=== PATIENT | female | born 2005 | race Two or more races ===

== ENCOUNTER 2024-07-11 16:30 | Inpatient (IN) | payer MEDICAID, SELFPAY ==
[2024-07-11] VITALS (114 sets, daily range): BP systolic 96–191; BP diastolic 49–139; PULSE 86–145; RESP 18–99; TEMP 36.5–38.7; O2SAT 77–100; BMI 32.5
--- NOTE | 2024-07-11 16:54 | PD.LDHP ---
Documentation for date of: 07/11/24 OB Labor/Induct. HPI History of Present Illness Chief complaint: Active labor, ruptured membranes. : 1 Para: 0 History of sections: No History of : No SANDRA: 07/14/24 Gestational Age (weeks): 39 Gestational Age (days): 4 History of present illness: The patient is a 19-year-old G1, P0 at 39-4/7 weeks with an EDC of 07/14/2024 who presented to labor and delivery in active labor with painful uterine contractions. She presented approximately 1630. She states her bag water broke at home at 1600. Patient's 5 cm dilated on presentation group B strep is negative. Patient reports good movement painful contractions and no heavy vaginal bleeding. She reports leaking clear fluid. History of Present Dating criteria: LMP confirmed by 1st trimester US Adequate Care: Yes Ultrasounds: normal mid trimester US Obstetrical complications: none Medical complications: none Labs Maternal Blood Type: A Pos Labs: Positive: Rubella Titre and Negative: RPR, Hepatitis B, HIV, Chlamydia, Gonorrhea and Group Beta Strep Review of Systems Review of Systems Systems Reviewed: All systems reviewed, normal except as documented Past Medical History Past Medical History PSYCHO/SOCIAL: Positive Anxiety Surgical History SURGICAL: Negative Section Meds Home Medications and Allergies Home Medications ?Medication ?Instructions ?Recorded ?Confirmed ?Type No Known Home Medications 07/11/24 07/11/24 History Allergies Allergy/AdvReac Type Severity Reaction Status Date / Time No Known Allergies Allergy Verified 07/11/24 16:37 OB Exam Physical Exam Vital signs: Temp Pulse Resp BP Pulse Ox O2 Del Method 97.7 F 120 H 20 122/75 99 Room Air 07/11/24 16:50 07/11/24 16:34 07/11/24 16:50 07/11/24 16:34 07/11/24 16:34 07/11/24 16:34 Routine Abdominal Exam Abdominal: Present soft Detailed Labor and Delivery Exam Dilation (cm): 5 Effacement (%): 80 Cervix position: mid station: -1 Consistency: soft Presentation: Vertex Membranes: ruptured Amniotic fluid: clear monitor accelerations: 15x15 monitor decelerations: Early termite treater variability: Moderate (11-25) Contraction frequency (min): 3 min Contraction duration (sec): 45 Tachysystole: No Contraction intensity: Strong OB Assessment & Plan Assessment and Plan (1) Active labor at term: Status: Acute Additional Plan Plan: anticipate NVD Additional Plan Comment: Okay for epidural once lab work is back.
[2024-07-11 17:28] LABS: Basophils # (Auto) 0.1 Thou/mm3 (0.0-0.2); Basophils % (Auto) 0 % (0-2.5); Eosinophils % (Auto) 0 % (0-10); Hematocrit 35.7 % (36.0-46.0); Hemoglobin 12.5 g/dL (12.0-16.0); Immature Granulocytes % (Auto) 0 % (0-0); Immature Granulocytes Auto 0.05 Thou/mm3 (0.00-0.00); Lymphocytes % (Auto) 13 % (10-50); Mean Corpuscular Hemoglobin 30.7 pg (25.0-35.0); Mean Corpuscular Volume 88 fL (80-100); Monocytes # (Auto) 0.9 Thou/mm3 (0.0-0.8); Monocytes % (Auto) 6 % (0-12); Neutrophils % (Auto) 80 % (37-80); Nucleated Red Blood Cell % 0 /100 WBC (0); Platelet Count 266 Thou/mm3 (140-440); RDW Standard Deviation 40.8 fL (36.4-46.3); Red Blood Count 4.07 Miln/mm3 (4.00-5.20); White Blood Count 15.1 Thou/mm3 (3.6-11.0)
[2024-07-11 18:04] LABS: Syphilis Nonreactive (Nonreactive)
[2024-07-11] MEDS: fentaNYL CIT INJ 50 mCg/ML AMP 2ML 100 MCG IV (18:05)
[2024-07-11 18:19] LABS: Amphetamine/Metham Scrn,Ur OB Negative (Negative); Benzoylecgonine Screen, Ur OB Negative (Negative); Opiate Screen,Urine OB Negative (Negative); THC Screen,Urine OB Negative (Negative)
[2024-07-11] MEDS: RINGERS LACTATED 1000 ML 1,000 ML 125 ML IV ×2 (18:42→19:56)
[2024-07-11] MEDS: RINGERS LACTATED 500 ML 500 ML 999 ML IV (21:01)
[2024-07-11] MEDS: OXYTOCIN in NS 20 units 20 UNIT/1,000 ML BAG 125 UNIT IV (23:03)
[2024-07-11] MEDS: MISOPROSTOL 200 mCg TABLET 800 MCG PR (23:16)
[2024-07-11] MEDS: LIDOCAINE HCL 1% 20 ML VIAL INFL (23:16)
--- NOTE | 2024-07-11 23:29 | PD.LDDELS ---
Data ([place]) Data Hx Section: No Maternal Blood Type: A Pos Rubella Titre: Positive RPR: Non-reactive Labs: Negative: RPR, Hepatitis B, HIV, Chlamydia, Gonorrhea and Group Beta Strep : 1 Para: 0 Term: 0 : 0 : 0 Delivery Data ([facility]) Labor Data Stimulated/Augmented: No Induction: No ROM Date: 07/11/24 ROM Time: 16:00 Rupture Type: SROM Amniotic Fluid: Clear Delivery Data EDC: 07/14/24 Labor Onset Stage 1 Date: 07/11/24 Labor Onset Stage 1 Time: 15:30 Labor Onset Stage 2 Date: 07/11/24 Labor Onset Stage 2 Time: 22:09 Delivery Date: 07/11/24 Delivery Time: 23:01 Gestational age (weeks): 39 Gestational age (days): 4 Placenta Delivery Date: 07/11/24 Placenta Delivery Time: 23:03 Length stage 2 (minutes): 40 Length stage 3 (minutes): 2 Delivered by: Olga Garcia Delivery nurse: Carlee Thrasher Licensed Investment Sales Assistant at delivery: No Support person(s) at delivery: FOB, [id number] Other staff at delivery: 2nd Nurse Other staff at delivery: Nursery Nurse Other staff at delivery: Other staff at delivery: Katelyn Persaud Other staff at delivery: Emily Summers Other staff at delivery: isabel fong Delivery Method Delivery: Vaginal Delivery Type: Spontaneous Presentation: Vertex Position: OP Anesthesia Type Primary Anesthesia: Epidural Secondary Anesthesia: Local Delivery Room Medications Post Delivery Medications: Cytotec (800 ug rectally) Placenta Placenta Delivery: Spontaneous Placenta Cultures Obtained: No Placenta Sent for Examination: No Cord Sample: Cord Blood Obtained Episiotomy Episiotomy: None Lacerations #2: Perineal: 1st degree Periurethral: left periurethral Perineal repair Sutures used for repair: 4.0 Chromic and other EBL Estimated blood loss (ml): 300 Umbilical Cord Placenta/Cord Complication: Velamentous Insertion Umbilical Vessels: 3 Nuchal Cord: x1 Body Cord: None Additional Procedures Patient presented 5 centimeters dilated about 4 PM. She was admitted. She had already ruptured her membranes. She had epidural placed. She went on to progress to complete without the aid of Pitocin and pushed approximately 40 minutes. Patient had to push every other push because the baby was having deep variable decelerations with pushing. She delivered a liveborn female in the direct OP presentation at 2301. Findings liveborn female in the LOP presentation with a loose nuchal cord x 1 no meconium . Apgars were 8 and 9 weight was 6 pounds 3 ounces. The placenta was complete spontaneous grossly normal with a velamentous insertion delivering approximately 2 minutes after the baby delivered. Patient sustained a left first-degree periurethral laceration and a first-degree perineal laceration repaired in a standard fashion with local anesthesia using 4-0 chromic. After delivery, the patient had some brisk bleeding and 800 mcg of Cytotec were placed rectally along with fundal massage and her bleeding was noted to be scant. Complications were none. Condition both mom and were in stable condition in the delivery room [place] [facility] ([facility]) [place] [facility] Gender: Female Weight Grams: 2805 1 Minute Total: 8 5 Minute Total: 9
[2024-07-11] MEDS: IBUPROFEN TAB 400 MG TABLET 800 MG PO (23:50)
[2024-07-12] VITALS (30 sets, daily range): BP systolic 104–166; BP diastolic 55–80; PULSE 97–148; RESP 16–18; TEMP 36.3–37.9; O2SAT 96–100
[2024-07-12] MEDS: ceFAZolin/D5W 2 GM IV 2 GM/100 ML BAG IV
[2024-07-12] MEDS: ACETAMINOPHEN IVPB 1,000 MG/100 ML VIAL 250 MG IV (00:05)
[2024-07-12] MEDS: BENZO/LANO/ALOE (Dermoplast) 60 GM CAN 1 SPRAY TOP (00:55)
[2024-07-12 06:36] LABS: Basophils # (Auto) 0.1 Thou/mm3 (0.0-0.2); Basophils % (Auto) 0 % (0-2.5); Eosinophils % (Auto) 0 % (0-10); Hematocrit 26.1 % (36.0-46.0); Hemoglobin 9.1 g/dL (12.0-16.0); Immature Granulocytes % (Auto) 0 % (0-0); Immature Granulocytes Auto 0.05 Thou/mm3 (0.00-0.00); Lymphocytes # (Auto) 2.1 Thou/mm3 (1.0-4.8); Lymphocytes % (Auto) 14 % (10-50); Mean Corpuscular HGB Conc 34.9 g/dl (31.0-37.0); Mean Corpuscular Hemoglobin 31.2 pg (25.0-35.0); Mean Corpuscular Volume 89 fL (80-100); Monocytes # (Auto) 1.2 Thou/mm3 (0.0-0.8); Monocytes % (Auto) 8 % (0-12); Neutrophils # (Auto) 11.5 Thou/mm3 (1.8-7.7); Neutrophils % (Auto) 78 % (37-80); Nucleated Red Blood Cell % 0 /100 WBC (0); Platelet Count 228 Thou/mm3 (140-440); RDW Standard Deviation 42.9 fL (36.4-46.3); Red Blood Count 2.92 Miln/mm3 (4.00-5.20); White Blood Count 14.9 Thou/mm3 (3.6-11.0)
[2024-07-12] MEDS: DOCUSATE SOD 100 MG CAPSULE PO ×2 (08:38→21:40)
--- NOTE | 2024-07-12 09:39 | PD.LDPN ---
Documentation for date of: 07/12/24 OB Labor Progress Note Pain Control Pain control: tolerating well Pelvic Exam Dilation (cm): 5 Effacement (%): 80 station: -1 Comments: patient delivered just before midnight and doing well Contractions Contraction frequency: 3 min Contraction intensity: Strong Status status: Category ll
--- NOTE | 2024-07-12 09:40 | PD.LDPPPRG ---
Subjective Subjective Interval history: doing well , feels good Exam Vital Signs Temp Pulse Resp BP Pulse Ox O2 Del Method 97.3 F 102 H 16 114/74 98 Room Air 07/12/24 08:25 07/12/24 08:25 07/12/24 08:25 07/12/24 08:25 07/12/24 08:25 07/12/24 08:25 Narrative Exam ambulating . lochia normal, trying o breast feed , no dizziness or chest pain or SOB Constitutional Constitutional: no acute distress Routine Neck Exam Neck: Present supple and full ROM Routine Respiratory Exam Respiratory: Present chest non-tender, lungs clear, normal breath sounds, no resp distress and CTA bilaterally Routine Abdominal Exam Abdominal: Present soft and normoactive bowel sounds Routine Exam Patient deferred: external exam Comments: normal lochia , intact repair , no hematoma, uterus firm and no fundal tenderness Routine Extremities Exam Extremities: Present full ROM and pulses intact Routine Skin Exam Skin: Present intact Routine Neurological Exam Neurological: Present alert, oriented X3, CN II-XII intact, normal reflexes, vision grossly intact and normal speech Routine Psychiatric Exam Psychiatric: Present normal affect, normal thought process, cooperative and good insight Objective Labs 07/12/24 04:37 Labs: Laboratory Results - last 24 hr 07/11/24 07/11/24 07/12/24 16:50 17:05 04:37 WBC 15.1 H 14.9 H RBC 4.07 2.92 L Hgb 12.5 9.1 L D Hct 35.7 L 26.1 L MCV 88 89 MCH 30.7 31.2 MCHC 35.0 34.9 RDW Std Deviation 40.8 42.9 Plt Count 266 228 D Neut % (Auto) 80 78 Lymph % (Auto) 13 14 [place] % (Auto) 6 8 Eos % (Auto) 0 0 Baso % (Auto) 0 0 Neut # (Auto) 12.0 H 11.5 H Lymph # (Auto) 2.0 2.1 [place] # (Auto) 0.9 H 1.2 H Eos # (Auto) 0.0 0.0 Baso # (Auto) 0.1 0.1 Immature Gran # (Auto) 0.05 H 0.05 H Absolute Nucleated RBC 0.00 0.00 Immature Gran % 0 0 Nucleated RBC % 0 0 Urine Opiates Screen Negative U Amphetamin/Meth Scrn Negative U Cocaine Metab Screen Negative U Marijuana (THC) Screen Negative Syphilis Serology Nonreactive Blood Type A Positive Antibody Screen NEGATIVE Blood Bank Wristband ID Yes Assessment & Plan Problem List (1) Active labor at term: Problem details: labor , s/p and doing well. Routine care Status: Acute Assessment and plan: Routine care Assessment Comment Assessment comment: stable , doing well Plan Comment Plan Comment: discharge tomorrow / GBS negative , delivered just before midnight Time Spent With Patient Time: Total time spent is greater than 50% in coordination of care (as documented) at patient's floor/unit and/or counseling patient: Time with patient: 25 - 35 minutes
[2024-07-12] MEDS: ACETAMINOPHEN 325 MG TABLET 650 MG PO (21:40)
[2024-07-13 03:05] VITALS: BP 111/71; PULSE 88; RESP 16; TEMP 36.6; O2SAT 99
[2024-07-13 07:22] VITALS: BP 116/80; PULSE 97; RESP 18; TEMP 36.5; O2SAT 99
--- NOTE | 2024-07-13 11:00 | PC.CC ---
Patient is a 19 year-old female who presents to the hospital to deliver her baby girl, Cherelle Escobar. ASW receives a referral for THC history. ASLinda Méndez made [id number] contact with patient. ASW introduced self, role, and reason for visit. Patient appeared alert and oriented to self, location, and situation.?When ASW entered the room the patient was tearful and requested ASW return as she needed to use the restroom. At bedside was patient's significant other/father of baby, Ag Escobar was at bedside. ASW returned to the room with DAMION Jimenez. Patient's significant other/father of baby was requested to exit the room during assessment. Patient reports she used THC when she was an adolescent but does not currently use. Patient continued to be tearful during assessment. ASW attempted to explore with the patient why she was tearful and reported it was because she felt overwhelmed with being a new mother. Patient denied domestic violence and continued to seek reassurance from significant other who remained outside of the room. The FOB became hostile with nursing staff requesting to enter the room and stated that nothing was wrong with the patient. automotive parts counter person Dayana stepped in to help deescalate the father of the baby as he continued to make statements that nursing staff was rude and did not understand why he cannot be in the room during the assessment. Patient denied history of mental health and reports she is not connected with out patient mental health services. ASW provided psychoeducation regarding baby blues and Post- Depression, as well as counseling groups [facility]. SW provided community resources: Warm Line and Crisis Line. Patient reports she does not have a car seat of her own for her and will be borrowing one. Patient reports she plans to bottle and breast feed her baby. ASW provided update to automotive parts counter person Leslie and bedside DAMION Jimenez that patient does not have a carseat of their own.
--- NOTE | 2024-07-13 11:22 | PD.LDDS ---
DS: Providers Provider Date of admission: 07/11/24 16:48 Primary care physician: Physician No Primary/Family Admitting Provider: Olga Garcia MD Attending Provider on Admission: Olga Garcia MD Consults: 07/11/24 23:40 Referral Routine Comment: Attending Provider on DC: Becka Mac MD Discharging Provider: Becka Mac MD Anticipated date of discharge: 07/13/24 DS: Diagnosis Discharge Diagnosis (1) Active labor at term: Status: Acute Assessment & Plan: post routine care and doing well Problem List Completed Was Problem List Reviewed/Reconciled?: Yes Summary/Hosp Course Brief History: The patient is a 19-year-old G1, P0 at 39-4/7 weeks with an EDC of 07/14/2024 who presented to labor and delivery in active labor with painful uterine contractions. She presented approximately 1630. She states her bag water broke at home at 1600. Patient's 5 cm dilated on presentation group B strep is negative. Patient reports good movement painful contractions and no heavy vaginal bleeding. She reports leaking clear fluid. Peripartum Data Delivery Method: Normal Vaginal Delivery Laceration Description: yes complications: none Status at Discharge Cognitive/behavioral status at discharge: normal Functional status at discharge: independent ambulation Time Spent with Patient Time attestation: Total time spent providing and/or coordinating discharge services: Exam Vital Signs Temp Pulse Resp BP Pulse Ox O2 Del Method 97.7 F 97 18 116/80 99 Room Air 07/13/24 07:22 07/13/24 07:22 07/13/24 07:22 07/13/24 07:22 07/13/24 07:22 07/13/24 07:22 Narrative Exam doing well Constitutional Constitutional: no acute distress Routine Neck Exam Neck: Present supple and full ROM Routine Respiratory Exam Respiratory: Present chest non-tender, lungs clear, normal breath sounds, no resp distress and CTA bilaterally Routine Cardiovascular Exam Cardiovascular: Present RRR Routine Abdominal Exam Abdominal: Present soft and normoactive bowel sounds Routine Extremities Exam Extremities: Present full ROM, pulses intact and calf tenderness (none ) Routine Back/Spine/Pelvis Exam Back/Spine: Present full ROM and CVA tenderness (none) Routine Skin Exam Skin: Present intact and normal turgor Routine Neurological Exam Neurological: Present alert, oriented X3, CN II-XII intact and vision grossly intact Routine Psychiatric Exam Psychiatric: Present normal affect, normal thought process, cooperative, good insight and good judgment Discharge Plan Plan Patient Disposition: HOME (Self Care) Disposition Comment: stable Patient condition on transfer: Stable Prescriptions/Referrals Prescriptions/Med Rec: New acetaminophen 325 mg Tablet 650 mg PO Q4H PRN (Reason: See Comments) Qty: 20 0RF ibuprofen 600 mg tablet 600 mg PO Q8H PRN (Reason: pain) Qty: 30 0RF Referrals: No Primary/Family,Physician [Primary Care Provider] - Patient/Caregiver Discharge Instructions Discharge Activity: activity as tolerated Other Discharge Activity Instructions:: pelvic rest x 6 weeks,Follow up Ob in 4 to 6 weeks ED precautions for fever, heavy bleeding Other Discharge Diet Instructions: regular Print Language: Yoruba Stand Alone Forms: Laura Award Info., Patient Portal Info Letter Discharge Order Discharge Orders: Discharge (Routine); Ordered 07/13/24 Ordered By: Becka Mac Planned Discharge Date 07/13/24
== END 2024-07-13 15:09 | disposition home or self-care (01) | DRG 560 ==
LOC: S4SX 23:20 → S4NX 07-12 01:29
PROVIDERS: Admitting Provider Obstetrics & Gynecology; Visit Provider Obstetrics & Gynecology
DX: O69.81X0 Labor and delivery complicated by cord around neck, without compression, not applicable or unspecified (principal); Z37.0 Single live birth; O76 Abnormality in fetal heart rate and rhythm complicating labor and delivery; Z3A.39 39 weeks gestation of pregnancy; O70.0 First degree perineal laceration during delivery; O71.82 Other specified trauma to perineum and vulva
CPT/HCPCS: 36415; 59025; 59409; 80307; 85025; 86780; 86850; 86900; 86901; 94762; J0131; J0689; J2590; J3010; J3490; J7120; S0191; A9270